=== PATIENT | female | born 1975 | race Caucasian/White ===

== ENCOUNTER → 2016-12-11 | Outpatient (CLI) | payer BC | LOC: MC.RAD 11:11 | DX: Z12.31 Encounter for screening mammogram for malignant neoplasm of breast (principal) ==

== ENCOUNTER → 2018-06-23 | Outpatient (CLI) | payer BC | LOC: MC.RAD 08:55 | DX: Z12.31 Encounter for screening mammogram for malignant neoplasm of breast (principal) ==

== ENCOUNTER → 2020-09-13 | Outpatient (CLI) | payer BC | LOC: MC.RAD 13:27 | DX: Z12.31 Encounter for screening mammogram for malignant neoplasm of breast (principal) ==

== ENCOUNTER → 2021-09-27 | Outpatient (CLI) | payer BC | LOC: MC.RAD 07:06 | DX: Z12.31 Encounter for screening mammogram for malignant neoplasm of breast (principal) ==